=== PATIENT | female | born 1970 | race Caucasian/White ===

== ENCOUNTER 2017-05-16 08:56 | Outpatient (CLI) | payer OTHER ==
[2017-05-16] MEDS ORDERED: Gadobenate Dimeglumine 529 MG/1 ML (20ML VIAL) ONE (16:50)
== END 2017-05-16 08:57 | disposition home or self-care (01) ==
LOC: BICMRI 08:56
PROVIDERS: ATTEND Student in an Organized Health Care Education/Training Program
DX: G35 Multiple sclerosis (principal); H53.9 Unspecified visual disturbance; R51 Headache; H53.8 Other visual disturbances; R20.9 Unspecified disturbances of skin sensation; M47.892 Other spondylosis, cervical region; M99.81 Other biomechanical lesions of cervical region
CPT/HCPCS: 70553; 72156; A9579

== ENCOUNTER 2017-10-19 11:01 | Outpatient (CLI) | payer OTHER | END 2017-10-19 11:02 | disposition home or self-care (01) | LOC: BICMAMMO 11:01 | PROVIDERS: ATTEND Family Medicine | DX: Z12.31 Encounter for screening mammogram for malignant neoplasm of breast (principal) | CPT/HCPCS: 77063; 77067 ==

== ENCOUNTER 2017-10-21 07:35 | Outpatient (CLI) | payer OTHER | END 2017-10-21 07:36 | disposition home or self-care (01) | LOC: BICULT 07:35 | PROVIDERS: ATTEND Family Medicine | DX: R10.31 Right lower quadrant pain (principal); Z98.890 Other specified postprocedural states; Z90.89 Acquired absence of other organs | CPT/HCPCS: 76856; 93976 ==

== ENCOUNTER 2017-11-08 12:02 | Outpatient (CLI) | payer BC, OTHER ==
[~2017-11-08 12:02] MED LIST: ISOVUE-370 76%-LOCM 1 ML ONE
== END 2017-11-08 12:03 | disposition home or self-care (01) ==
LOC: BICCT 12:02
PROVIDERS: ATTEND Family Medicine
DX: R10.31 Right lower quadrant pain (principal); Z90.711 Acquired absence of uterus with remaining cervical stump; Z90.49 Acquired absence of other specified parts of digestive tract
CPT/HCPCS: 74160

== ENCOUNTER 2017-11-17 07:31 | Outpatient (CLI) | payer OTHER, BC ==
[2017-11-17] MEDS ORDERED: Gadobenate Dimeglumine 529 MG/1 ML (20ML VIAL) ONE (11:22)
--- NOTE | 2017-11-17 12:12 | MRI ---
MRI LUMBAR SPINE: COMPARISON: comparison study 10/28/15. HISTORY: Multiple sclerosis, cramping and lower back pain. TECHNIQUE: Multiplanar, multisequence MR imaging of the lumbar spine is obtained with and without contrast. FINDINGS: STIR imaging of the lumbar spine demonstrates no focal area of osseous marrow edema. Assuming 5 lumb ar-type vertebral bodies, conus medullaris terminates at the T12-L1 level. T12-L1: There is mild bilateral facet hypertrophy. There is no significant central canal or neural foraminal stenosis. L1-2: Mild bilateral facet hypertrophy and hypertrophy of the ligamentum flavum. Intervertebral dis k height and signal intensity is within normal limits with no significant central canal or neural for aminal stenosis. L2-3: Mild bilateral facet hypertrophy. Intervertebral disk height and signal intensity is within n ormal limits with no central canal or neural foraminal stenosis. L3-4: There is disk space narrowing, disk desiccation, and mild disk bulge, not significantly change d. There is bilateral facet hypertrophy and hypertrophy of the ligamentum flavum, right greater than left. No significant central canal or neural foraminal stenosis. L4-5: There is disk space narrowing, disk desiccation, and mild disk bulge, slightly worsened since the prior exam. No significant central canal stenosis. Mild bilateral neural foraminal stenosis, ri ght greater than left. L5-S1: No significant central canal or neural foraminal stenosis. The imaged retroperitoneal structures appear grossly unremarkable. Postcontrast imaging is provided. There is no abnormal enhancement involving the intervertebral disk s or the imaged osseous structures. There is a focus of enhancement associated with the cauda equina measuring 2-3 mm at the axial level of the L4 vertebral body, which is unchanged when compared to 10/28/15 examination. IMPRESSION: Degenerative changes. Nonspecific solitary 2-3 mm focus of enhancement associated with nerve roots o f the cauda equina, unchanged since the 2016 examination. No acute findings. POS: [facility]
--- NOTE | 2017-11-17 12:15 | MRI ---
MRI THORACIC SPINE WITH AND WITHOUT CONTRAST: HISTORY: Multiple sclerosis. Followup examination. COMPARISON: 10/28/15. TECHNIQUE: MRI lumbar spine is performed with and without intravenous Gadolinium administration. Multisequentia l, multiplanar imaging is performed. FINDINGS: Appropriate T1 marrow signal intensity of the thoracic vertebrae. Vertebral body heights are maintai ludivina. No fracture. There is a Schmorl's node on the superior end plate of T12. Intrinsic T1 and T2 hyperintensity along the posterior aspect of the T12 vertebral body compatible with a hemangioma. A second hemangioma is noted at the T6 level. Visualized mediastinal structures, parenchyma, and solid organs are grossly unremarkable. Conus medullaris terminates at the T12-L1 disk space level. Throughout the thoracic spine, there is no significant central canal stenosis. Neural foramen are pa tent. The thoracic cord has a normal size and signal intensity. No significant T2 hyperintensity to sugges t a demyelinating plaque. There is no evidence of abnormal enhancement of the thoracic cord. IMPRESSION: No MR evidence of a demyelinating plaque in the thoracic cord. POS: [facility]
== END 2017-11-17 07:32 | disposition home or self-care (01) ==
LOC: BICMRI 07:31
PROVIDERS: ATTEND Psychiatry & Neurology Neurology
DX: G35 Multiple sclerosis (principal); M47.896 Other spondylosis, lumbar region; R93.7 Abnormal findings on diagnostic imaging of other parts of musculoskeletal system
CPT/HCPCS: 72157; 72158; A9579

== ENCOUNTER 2018-04-11 08:21 | Outpatient (CLI) | payer OTHER, BC ==
--- NOTE | 2018-04-11 09:16 | ULT ---
LEFT BREAST ULTRASOUND: Date: 04/11/18 HISTORY: Palpable abnormality at the 1 o'clock position of the left breast. FINDINGS: Correlation is made with mammogram same date. Sonographic evaluation of the region of palpable concern at the 1 o'clock position of the left breast demonstrates no abnormality. IMPRESSION: BIRADS Category 2 - Benign findings. Return to annual mammographic screening. Further evaluation (including biopsy) of the region of palpable concern should be based on clinical f indings/suspicion. POS: OFF
== END 2018-04-11 08:22 | disposition home or self-care (01) ==
LOC: BICMAMMO 08:21
PROVIDERS: ATTEND Family Medicine
DX: N63.20 Unspecified lump in the left breast, unspecified quadrant (principal)
CPT/HCPCS: G0279

== ENCOUNTER 2018-11-22 11:36 | Outpatient (CLI) | payer BC ==
--- NOTE | 2018-11-22 12:58 | MMO ---
Bilateral MAMMO Bilat Screen [facility]. CLINICAL HISTORY: Patient is 48 years old and is seen for screening. The patient has no family history of breast cancer. The patient has no personal history of cancer. The patient has a history of left Ultrasound Guided Core Biopsy in May, and left cyst aspiration in 2004. VIEWS: The views performed were: bilateral craniocaudal with tomosynthesis and bilateral mediolateral oblique with tomosynthesis. FILMS COMPARED: The present examination has been compared to prior imaging studies performed at [facility] on 08/12/2015, 10/01/2016, 10/19/2017 and 04/11/2018. This study has been interpreted with the assistance of computer-aided detection. MAMMOGRAM FINDINGS: The breasts are heterogeneously dense, which could obscure a lesion on mammography. There is a biopsy clip seen in the left breast. There are no suspicious masses, suspicious calcifications, or new areas of architectural distortion. IMPRESSION: THERE IS NO MAMMOGRAPHIC EVIDENCE OF MALIGNANCY. A ROUTINE FOLLOW-UP MAMMOGRAM IN 1 YEAR IS RECOMMENDED. THE RESULTS OF THIS EXAM WERE SENT TO THE PATIENT. ACR BI-RADS Category 2 - Benign finding MAMMOGRAPHY NOTE: 1. A negative mammogram report should not delay a biopsy if a dominant of clinically suspicious mass is present. 2. Approximately 10% to 15% of breast cancers are not detected by mammography. 3. Adenosis and dense breasts may obscure an underlying neoplasm. Reported by: PB REICH MD Electonically Signed: [id number]
== END 2018-11-22 11:37 | disposition home or self-care (01) ==
LOC: BICMAMMO 11:36
DX: Z12.31 Encounter for screening mammogram for malignant neoplasm of breast (principal)
CPT/HCPCS: 77063; 77067

== ENCOUNTER 2019-03-02 15:14 | Outpatient (CLI) | payer BC ==
--- NOTE | 2019-03-02 15:45 | RAD ---
RADIOGRAPH CHEST 2 VIEWS: 03/02/19 HISTORY: 48-year-old female with acute traumatic left sided chest pain after fall. FINDINGS: There is no air space density, pulmonary edema, pleural effusion, pneumothorax, or cardiomegaly. IMPRESSION: No acute cardiopulmonary findings. jn [] POS: [facility]
== END 2019-03-02 15:15 | disposition home or self-care (01) ==
LOC: BICRAD 15:14
DX: G35 Multiple sclerosis (principal); R07.81 Pleurodynia; W19.XXXA Unspecified fall, initial encounter; Y29.XXXA Contact with blunt object, undetermined intent, initial encounter
CPT/HCPCS: 71046

== ENCOUNTER 2019-05-16 08:08 | Outpatient (CLI) | payer BC ==
--- NOTE | 2019-05-16 09:44 | MRI ---
EXAM: MRI CERVICAL SPINE WITHOUT CONTRAST: HISTORY: Past medical history of multiple sclerosis. Routine checkup. Patient has been stumbling more lately. COMPARISON: 08/09/2016 FINDINGS: Appropriate T1 marrow signal intensity of the cervical vertebra. Cervical spine vertebral body heigh t is maintained. No fracture. No significant STIR hyperintensity to suggest vertebral body edema or ligamentous injury. Visualized brain parenchyma has appropriate signal intensity. There is abnormal T2 hyperintensity inv olving the right aspect of the cord at the C3-C4 disc space, extending inferiorly to the mid C6 level. There is T2 hyperintensity involving the left aspect of the cervical cord at the mid to lower C5 level. C2-C3: No significant central canal stenosis or significant neural foraminal narrowing. C3-C4: No significant central canal stenosis or significant neural foraminal narrowing. C4-C5: Broad-based disc bulge abuts the thecal sac. No significant central canal stenosis. Right neur al foramen is patent. Mild left foraminal narrowing due to uncovertebral hypertrophy. C5-C6: Desiccation with moderate loss of disc space height. Broad-based disc osteophyte complex abuts the thecal sac. Subarachnoid space is mildly effaced. Mild central canal stenosis. Mild to moderate bilateral foraminal narrowing due to uncovertebral hypertrophy. C6-C7: No significant central canal stenosis or significant neural foraminal narrowing. C7-T1: No significant central canal stenosis or significant neural foraminal narrowing. IMPRESSION: 1. Redemonstration of T2 and STIR hyperintensity involving the cervical cord as described above. Abse nce of contrast limits evaluation for active demyelination. When compared to the previous examination, the overall degree of T2 hyperintensity in the cord has not changed. 2. Degenerative changes of the cervical spine as described above. Transcribed Date/Time: 05/16/2019 10:31 AM
--- NOTE | 2019-05-16 10:25 | MRI ---
Exam: Brain MRI with and without contrast HISTORY: Worsening multiple sclerosis symptoms. Increased stumbling. COMPARISON: 10/28/2015, 05/16/2017 FINDINGS: Gradient echo sequence: No hemorrhage Calvarium: Appropriate T1 marrow signal intensity Midline brain parenchyma: Unremarkable Cerebrum:No parenchymal mass, mass effect or midline shift. Brain volume is age-appropriate. Cortical churchill-white matter differentiation is preserved. No significant T2 or FLAIR white matter hyperintensities to suggest demyelinating plaques. Ventricles: No evidence of hydrocephalus. Sinuses and mastoid air cells: Adequate aeration Diffusion: Central arterial flow is maintained. Absent restricted diffusion. Postcontrast images: No pathologic enhancement of the brain parenchyma. IMPRESSION: 1. No pathologic enhancement brain parenchyma. 2. Absent restricted diffusion 3. No significant T2 or FLAIR white matter hyperintensities suggestive moderate plaques within the ce rebrum.
[2019-05-16] MEDS ORDERED: Magnevist 469MG/ML 20 ML VIAL ONE (15:01)
== END 2019-05-16 08:09 | disposition home or self-care (01) ==
LOC: BICMRI 08:08
PROVIDERS: ATTEND Psychiatry & Neurology Neurology
DX: G35 Multiple sclerosis (principal); M47.812 Spondylosis without myelopathy or radiculopathy, cervical region
CPT/HCPCS: 70553; 72141; A9579

== ENCOUNTER 2019-12-26 14:28 | Outpatient (CLI) | payer BC ==
--- NOTE | 2019-12-26 15:13 | BD ---
EXAM: DEXA bone density examination HISTORY: 49-year-old postmenopausal female for screening COMPARISON: None FINDINGS: L1--bone mineral density 0.757 g/sq cm; T score -2.1 L2--bone mineral density 0.741 g/sq cm; T score -2.6 L3--bone mineral density 0.707 g/sq cm; T score -3.4 L4--bone mineral density 0.767 g/sq cm; T score -2.7 Total L1-L4--bone mineral density 0.740 g/sq cm; T score -2.8 Left femoral neck--bone mineral density0.514; T score -3.0 Total proximal left femur--bone mineral density 0.707; T score -1.9 IMPRESSION: Osteoporosis.
--- NOTE | 2019-12-26 16:47 | MMO ---
Bilateral MAMMO Bilat Screen [facility]. CLINICAL HISTORY: Patient is 49 years old and is seen for screening. The patient has no family history of breast cancer. The patient has no personal history of cancer. The patient has a history of left Ultrasound Guided Core Biopsy in May, and left cyst aspiration in 2004. VIEWS: The views performed were: bilateral craniocaudal with tomosynthesis and bilateral mediolateral oblique with tomosynthesis. FILMS COMPARED: The present examination has been compared to prior imaging studies performed at [facility] on 10/01/2016, 10/19/2017, 04/11/2018 and 11/22/2018. This study has been interpreted with the assistance of computer-aided detection. MAMMOGRAM FINDINGS: The breasts are heterogeneously dense, which could obscure a lesion on mammography. Left biopsy clip. There are no suspicious masses, suspicious calcifications, or new areas of architectural distortion. IMPRESSION: THERE IS NO MAMMOGRAPHIC EVIDENCE OF MALIGNANCY. A ROUTINE FOLLOW-UP MAMMOGRAM IN 1 YEAR IS RECOMMENDED. THE RESULTS OF THIS EXAM WERE SENT TO THE PATIENT. ACR BI-RADS Category 2 - Benign finding MAMMOGRAPHY NOTE: 1. A negative mammogram report should not delay a biopsy if a dominant of clinically suspicious mass is present. 2. Approximately 10% to 15% of breast cancers are not detected by mammography. 3. Adenosis and dense breasts may obscure an underlying neoplasm. Reported by: GABI ALEJANDRO MD Electonically Signed: [id number]
== END 2019-12-26 14:29 | disposition home or self-care (01) ==
LOC: BICMAMMO 14:28
DX: Z12.31 Encounter for screening mammogram for malignant neoplasm of breast (principal); Z13.820 Encounter for screening for osteoporosis; M85.80 Other specified disorders of bone density and structure, unspecified site; M81.0 Age-related osteoporosis without current pathological fracture
CPT/HCPCS: 77063; 77067; 77080

== ENCOUNTER 2020-07-30 14:20 | Day surgery (SDC) | payer BC ==
[2020-07-30] MEDS ORDERED: methylPREDNISolone Sod Succ 1,000 MG in Sodium Chloride 0.9% 100 ML IVPB SCH (15:00)
[2020-07-30 16:00] VITALS: BP 112/63; TEMP 98.5
== END 2020-07-30 17:24 | disposition home or self-care (01) ==
LOC: ONC/OP 14:20
DX: G35 Multiple sclerosis (principal)
CPT/HCPCS: 96365; J2930; J3490

== ENCOUNTER 2020-08-04 06:45 | Outpatient (CLI) | payer BC ==
[2020-08-04] MEDS ORDERED: Magnevist 469MG/ML 20 ML VIAL ONE (09:06)
== END 2020-08-04 06:46 | disposition home or self-care (01) ==
LOC: BICMRI 06:45
PROVIDERS: ATTEND Psychiatry & Neurology Neurology
DX: G35 Multiple sclerosis (principal)
CPT/HCPCS: 70553; 72156; 72157

== ENCOUNTER 2020-12-05 08:18 | Outpatient (CLI) | payer BC | END 2020-12-05 08:19 | disposition home or self-care (01) | LOC: TBSIIMAG 08:18 | PROVIDERS: ATTEND Surgery | DX: M51.36 Other intervertebral disc degeneration, lumbar region (principal); M81.0 Age-related osteoporosis without current pathological fracture; M47.816 Spondylosis without myelopathy or radiculopathy, lumbar region | CPT/HCPCS: 72110; 72148 ==

== ENCOUNTER 2021-02-06 10:32 | Outpatient (CLI) | payer BC | END 2021-02-06 10:33 | disposition home or self-care (01) | LOC: BICMAMMO 10:32 | PROVIDERS: ATTEND Nurse Practitioner Family | DX: Z12.31 Encounter for screening mammogram for malignant neoplasm of breast (principal); Z91.89 Other specified personal risk factors, not elsewhere classified | CPT/HCPCS: 77063; 77067 ==

== ENCOUNTER 2022-04-16 09:00 | Outpatient (CLI) | payer BC | END 2022-04-16 09:01 | disposition home or self-care (01) | LOC: BICMAMMO 09:00 | PROVIDERS: ATTEND Nurse Practitioner Family | DX: Z12.31 Encounter for screening mammogram for malignant neoplasm of breast (principal); Z91.89 Other specified personal risk factors, not elsewhere classified | CPT/HCPCS: 77063; 77067 ==

== ENCOUNTER 2022-07-02 07:36 | Outpatient (CLI) | payer BC | END 2022-07-02 07:37 | disposition home or self-care (01) | LOC: SCSMRI 07:36 | PROVIDERS: ATTEND Psychiatry & Neurology Neurology | DX: G35 Multiple sclerosis (principal); M47.814 Spondylosis without myelopathy or radiculopathy, thoracic region; M47.812 Spondylosis without myelopathy or radiculopathy, cervical region; R90.89 Other abnormal findings on diagnostic imaging of central nervous system | CPT/HCPCS: 70553; 72156; 72157 ==

== ENCOUNTER 2023-02-04 12:03 | Outpatient (CLI) | payer BC | END 2023-02-04 12:04 | disposition home or self-care (01) | LOC: BICRAD 12:03 | PROVIDERS: ATTEND Internal Medicine Gastroenterology | DX: K21.9 Gastro-esophageal reflux disease without esophagitis (principal); K58.9 Irritable bowel syndrome, unspecified; R05.3 Chronic cough | CPT/HCPCS: 71046 ==

== ENCOUNTER 2023-04-01 08:06 | Outpatient (CLI) | payer BC | END 2023-04-01 08:07 | disposition home or self-care (01) | LOC: BICMAMMO 08:06 | PROVIDERS: ATTEND Nurse Practitioner Family | DX: M81.0 Age-related osteoporosis without current pathological fracture (principal); Z78.0 Asymptomatic menopausal state; M85.88 Other specified disorders of bone density and structure, other site | CPT/HCPCS: 77080 ==

== ENCOUNTER 2023-04-15 07:38 | Outpatient (CLI) | payer BC ==
[2023-04-15] MEDS ORDERED: Iopamidol-370 76% 500 ML MDV (1 ML CHARGE) ONE (14:47)
== END 2023-04-15 07:39 | disposition home or self-care (01) ==
LOC: BICCT 07:38
PROVIDERS: ATTEND Psychiatry & Neurology Neurology
DX: R05.3 Chronic cough (principal)
CPT/HCPCS: 71260; Q9967